=== PATIENT | female | born 1985 | race Caucasian/White ===

== ENCOUNTER 2018-09-25 11:52 | Emergency (ER) | payer OTHER ==
[2018-09-25 13:29] LABS: ADD MAN DIFF? NO
[2018-09-25 13:33] LABS: WHITE BLOOD COUNT 10.6 10^3/ul (4.8-10.8)
[2018-09-25 13:33] LABS: BASOPHILS % 0.3 % (0.0-2.0); EOSINOPHILS # 0.1 10^3/ul (0.0-0.5); EOSINOPHILS % 0.8 % (0.0-7.0); HEMATOCRIT 42.7 % (37.0-47.0); HEMOGLOBIN 14.2 g/dl (12.0-16.0); LYMPHOCYTES # 2.8 10^3/ul (0.8-2.9); LYMPHOCYTES % 26.1 % (15.0-51.0); MEAN CORPUSCULAR HEMOGLOBIN 26.9 pg (29.0-33.0); MEAN CORPUSCULAR HGB CONC 33.3 g/dl (32.0-37.0); MEAN CORPUSCULAR VOLUME 80.9 fl (82.0-101.0); MEAN PLATELET VOLUME 9.8 fl (7.4-10.4); MONOCYTE # 0.6 10^3/ul (0.3-0.9); MONOCYTES % 5.6 % (0.0-11.0); NEUTROPHIL # 7.1 10^3/ul (1.6-7.5); NEUTROPHILS % 66.8 % (39.0-77.0); PLATELET COUNT 304 10^3/UL (140-415); RED BLOOD COUNT 5.28 10^6/ul (4.20-5.40); RED CELL DISTRIBUTION WIDTH 13.5 % (11.5-14.5)
[2018-09-25 16:02] LABS: ADD UMIC YES; UR BILIRUBIN (Dip) NEGATIVE (NEGATIVE); UR BLOOD (Dip) 3+ mg/dL (NEGATIVE); UR CLARITY BLOODY (CLEAR); UR COLOR RED (YELLOW); UR GLUCOSE (Dip) 1+ mg/dL (NEGATIVE); UR KETONES (Dip) NEGATIVE (NEGATIVE); UR LEUKOCYTE ESTERASE (Dip) NEGATIVE Leu/ul (NEGATIVE); UR NITRITE (Dip) NEGATIVE (NEGATIVE); UR SPECIFIC GRAVITY (Dip) 1.025 (1.003-1.030); UR TOTAL PROTEIN (Dip) 2+ mg/dl (NEGATIVE); UR UROBILINOGEN (Dip) 0.2 E.U./dL mg/dL (NEGATIVE)
[2018-09-25 16:03] LABS: UR ASCORBIC ACID 40 mg/dL (NEGATIVE)
[2018-09-25 16:22] LABS: UR MUCUS MANY /HPF (NONE SEEN); UR RBC > 182 /HPF (0-5); UR WBC 0 /HPF (0-5)
[2018-09-25] MEDS: KETOROLAC 60 MG INJ IM ×2 (17:46→17:56)
[2018-09-25] MEDS: ACETAMINOPHEN 500 MG TAB PO (17:46)
== END 2018-09-25 17:56 | disposition home or self-care (01) ==
LOC: FTE 11:52
DX: O03.9 Complete or unspecified spontaneous abortion without complication (principal); O99.511 Diseases of the respiratory system complicating pregnancy, first trimester; J45.909 Unspecified asthma, uncomplicated; Z3A.00 Weeks of gestation of pregnancy not specified
CPT/HCPCS: 76801; 76817; 81001; 84702; 85025; 86900; 86901; 88302; 99284-25

== ENCOUNTER 2018-10-02 05:20 | Emergency (ER) | payer OTHER ==
[2018-10-02] MEDS: ACETAMINOPHEN 325 MG TAB PO (06:26)
[2018-10-02 06:39] LABS: ADD MAN DIFF? NO
[2018-10-02 06:46] LABS: ADD UMIC YES; UR ASCORBIC ACID NEGATIVE (NEGATIVE); UR BILIRUBIN (Dip) NEGATIVE (NEGATIVE); UR BLOOD (Dip) 3+ mg/dL (NEGATIVE); UR BUDDING YEAST FEW /HPF (NONE SEEN); UR CLARITY CLOUDY (CLEAR); UR COLOR RED (YELLOW); UR GLUCOSE (Dip) NEGATIVE (NEGATIVE); UR KETONES (Dip) NEGATIVE (NEGATIVE); UR LEUKOCYTE ESTERASE (Dip) 2+ Leu/ul (NEGATIVE); UR NITRITE (Dip) NEGATIVE (NEGATIVE); UR RBC > 182 /HPF (0-5); UR SPECIFIC GRAVITY (Dip) 1.014 (1.003-1.030); UR TOTAL PROTEIN (Dip) 1+ mg/dl (NEGATIVE); UR UROBILINOGEN (Dip) NEGATIVE (NEGATIVE); UR WBC 53 /HPF (0-5)
[2018-10-02 06:50] LABS: BASOPHILS % 0.2 % (0.0-2.0); EOSINOPHILS # 0.2 10^3/ul (0.0-0.5); EOSINOPHILS % 2.6 % (0.0-7.0); HEMATOCRIT 39.3 % (37.0-47.0); HEMOGLOBIN 12.5 g/dl (12.0-16.0); LYMPHOCYTES # 3.4 10^3/ul (0.8-2.9); LYMPHOCYTES % 36.1 % (15.0-51.0); MEAN CORPUSCULAR HEMOGLOBIN 26.5 pg (29.0-33.0); MEAN CORPUSCULAR HGB CONC 31.8 g/dl (32.0-37.0); MEAN CORPUSCULAR VOLUME 83.3 fl (82.0-101.0); MEAN PLATELET VOLUME 9.4 fl (7.4-10.4); MONOCYTE # 0.6 10^3/ul (0.3-0.9); MONOCYTES % 6.2 % (0.0-11.0); NEUTROPHIL # 5.1 10^3/ul (1.6-7.5); NEUTROPHILS % 54.7 % (39.0-77.0); PLATELET COUNT 285 10^3/UL (140-415); RED BLOOD COUNT 4.72 10^6/ul (4.20-5.40); RED CELL DISTRIBUTION WIDTH 13.9 % (11.5-14.5)
[2018-10-02 06:50] LABS: WHITE BLOOD COUNT 9.3 10^3/ul (4.8-10.8)
== END 2018-10-02 08:50 | disposition home or self-care (01) ==
LOC: FTE 05:20
DX: O20.0 Threatened abortion (principal); O99.511 Diseases of the respiratory system complicating pregnancy, first trimester; J45.909 Unspecified asthma, uncomplicated; Z3A.08 8 weeks gestation of pregnancy
CPT/HCPCS: 36415; 76801; 76817; 81001; 81025; 84702; 85025; 99284-25

== ENCOUNTER 2018-10-02 12:07 | Emergency (ER) | payer OTHER | END 2018-10-02 16:52 | disposition home or self-care (01) | LOC: FTE 12:07 | DX: O03.9 Complete or unspecified spontaneous abortion without complication (principal); O99.511 Diseases of the respiratory system complicating pregnancy, first trimester; J45.909 Unspecified asthma, uncomplicated | CPT/HCPCS: 87081; 99283 ==